=== PATIENT | male | born 1985 | race Caucasian/White ===

== ENCOUNTER 2018-08-18 16:15 | Emergency (ER) | payer OTHER ==
[2018-08-18 16:29] VITALS: BP 124/78; PULSE 55; RESP 18; TEMP 98.8; O2SAT 97
--- NOTE | 2018-08-18 18:20 | C.PDOC ---
History Of Present Illness 32 year old male presents to ED with complaint of foreign body stuck in his throat that occurred 1 hour [employer]. Patient states that he was eating fish and felt one of the bones get stuck in his throat. He states that he tried to eat bread to dislodge the bone, but still feels it. Patient denies SOB, nausea, vomiting, drooling, chest pain, and hemoptysis. Time Seen by Provider: 08/18/18 16:35 Chief Complaint (Nursing): ENT Problem History Per: Patient History/Exam Limitations: None Onset/Duration Of Symptoms: Hrs (1) Current Symptoms Are (Timing): Still Present Quality (Mouth/Throat): Other (foreign body) Past Medical History Reviewed: Historical Data, Nursing Documentation, Vital Signs Vital Signs: Last Vital Signs Temp 98.8 F 08/18/18 16:27 Pulse 55 L 08/18/18 16:27 Resp 18 08/18/18 16:27 BP 124/78 08/18/18 16:27 Pulse Ox 97 08/18/18 16:27 - Medical History PMH: No Chronic Diseases Surgical History: Appendectomy Family History: States: Unknown Family Hx - Social History Hx Alcohol Use: No Hx Substance Use: No - Immunization History Hx Tetanus Toxoid Vaccination: Yes Hx Influenza Vaccination: Yes Hx Pneumococcal Vaccination: Yes Review Of Systems ENT: Positive for: Throat Pain (foreign body stuck in the throat). Negative for: Other (drooling) Cardiovascular: Negative for: Chest Pain Respiratory: Negative for: Shortness of Breath, Hemoptysis Gastrointestinal: Negative for: Nausea, Vomiting Physical Exam - Physical Exam Appears: Well, Non-toxic, No Acute Distress Skin: Normal Color, Warm, Dry Head: Atraumatic, Normacephalic Eye(s): bilateral: Normal Inspection, PERRL, EOMI Oral Mucosa: Moist Throat: Normal (No foreign body seen), No Drooling Neck: Normal ROM, Supple Chest: Symmetrical, No Deformity, No Tenderness Cardiovascular: Rhythm Regular, No Murmur Respiratory: No Accessory Muscle Use, No Rales, No Rhonchi, No Wheezing Extremity: Capillary Refill (<2 seconds) Neurological/Psych: Oriented x3, Normal Speech, Normal Cognition Gait: Steady ED Course And Treatment O2 Sat by Pulse Oximetry: 97 (in RA) Pulse Ox Interpretation: Normal Medical Decision Making Medical Decision Making: Progress: Patient was told that he would need a CT scan in order to see a foreign body in his throat. Patient stated that he could not stay because he has a flight to catch. Patient eloped. Disposition - Disposition Disposition: ELOPEMENT - ER ONLY Disposition Time: 17:00 Condition: STABLE Forms: [facility] (Malaysian) - Clinical Impression Clinical Impression: Foreign body sensation in throat - PA / BUSINESS INTELLIGENCE DEVELOPER / Resident Statement MD/DO has reviewed & agrees with the documentation as recorded. (Liseth Cuello) - Scribe Statement The provider has reviewed the documentation as recorded by the Scribe (Liseth Cuello) All medical record entries made by the Scribe were at my direction and personally dictated by me. I have reviewed the chart and agree that the record accurately reflects my personal performance of the history, physical exam, medical decision making, and the department course for this patient. I have also personally directed, reviewed, and agree with the discharge instructions and disposition.
== END 2018-08-18 17:00 | disposition left against medical advice (07) ==
LOC: C.ER 16:15
DX: R09.89 Other specified symptoms and signs involving the circulatory and respiratory systems (principal)